=== PATIENT | female | born 1945 | race Caucasian/White ===

== ENCOUNTER 2022-08-03 10:39 | Outpatient (CLI) | payer MEDICARE, BC | END 2022-08-03 10:40 | disposition home or self-care (01) | LOC: CSHMAMMO 10:39 | PROVIDERS: ATTEND Family Medicine | DX: Z12.31 Encounter for screening mammogram for malignant neoplasm of breast (principal); Z80.3 Family history of malignant neoplasm of breast; Z91.89 Other specified personal risk factors, not elsewhere classified | CPT/HCPCS: 77063; 77067 ==

== ENCOUNTER 2023-12-10 11:17 | Outpatient (CLI) | payer MEDICARE | END 2023-12-10 11:18 | disposition home or self-care (01) | LOC: CSHMAMMO 11:17 | PROVIDERS: ATTEND Family Medicine | DX: Z13.820 Encounter for screening for osteoporosis (principal); Z78.0 Asymptomatic menopausal state; M85.851 Other specified disorders of bone density and structure, right thigh; M85.832 Other specified disorders of bone density and structure, left forearm | CPT/HCPCS: 77080 ==

== ENCOUNTER 2025-01-21 12:05 | Outpatient (CLI) | payer MEDICARE | END 2025-01-21 12:06 | disposition home or self-care (01) | LOC: CSHRAD 12:05 | PROVIDERS: ATTEND Internal Medicine Rheumatology | DX: M81.0 Age-related osteoporosis without current pathological fracture (principal) | CPT/HCPCS: 72070 ==